=== PATIENT | female | born 1970 | race Caucasian/White ===

== ENCOUNTER → 2016-07-29 | Outpatient (CLI) | payer BC | END | disposition home or self-care (01) | LOC: LABMAIN 12:18 | PROVIDERS: ATTEND Psychiatry & Neurology Psychiatry | DX: J09.X2 Influenza due to identified novel influenza A virus with other respiratory manifestations (principal); J10.1 Influenza due to other identified influenza virus with other respiratory manifestations | CPT/HCPCS: 87502 ==

== ENCOUNTER → 2021-01-21 | Outpatient (CLI) | payer BC ==
--- NOTE | 2021-01-21 12:09 | ECHOS ---
STRESS ECHOCARDIOGRAM INDICATIONS: Chest pain. BASELINE HEART RATE: 84 BASELINE BLOOD PRESSURE: 134/81 MAXIMUM HEART RATE: 174 MAXIMUM BLOOD PRESSURE: 160/91 85% MPHR: 145 100% MPHR: 171 METS: 11.5 MAXIMUM STAGE REACHED: IV TOTAL EXERCISE TIME: 10:00 CLINICAL INFORMATION: Baseline EKG shows sinus rhythm, normal axis, normal intervals. Patient exercised on Gonzalez protocol for a total of 10 minutes, achieving 11 METS, 100% of predicted maximal heart rate, without chest pain. At peak exercise there was [address]-segment depression noted. Baseline echo shows normal left ventricular size, wall motion and systolic function. Post exercise there is normal hyperdynamic response of all segments of myocardium noted. CONCLUSIONS: 1. Good exercise tolerance. 2. Abnormal stress test by EKG criteria. 3. Normal stress echo. MMODL / IJN: [id number] /
== END | disposition home or self-care (01) ==
LOC: RADNMMAIN 08:58
PROVIDERS: ATTEND Family Medicine
DX: R94.31 Abnormal electrocardiogram [ECG] [EKG] (principal)
CPT/HCPCS: 93005; 93351